=== PATIENT | male | born 1990 | race Two or more races ===

== ENCOUNTER 2017-01-15 15:22 | Emergency (ER) | payer SELFPAY ==
[~2017-01-15] VITALS: Ht 170.2 cm; Wt 82.0 kg
[2017-01-15] MEDS ORDERED: IBUPROFEN 600MG TABLET PO ONE (17:15)
[2017-01-15 17:28] VITALS: BP 135/83
== END 2017-01-15 18:40 | disposition home or self-care (01) ==
LOC: ER 16:20
DX: M25.572 Pain in left ankle and joints of left foot (principal)
CPT/HCPCS: 73610; 99284